=== PATIENT | male | born 1970 | race African-American/Black ===

== ENCOUNTER 2018-06-24 09:10 | Outpatient (CLI) | payer MEDICARE, MEDICAID ==
[~2018-06-24] VITALS: Ht 188 cm; Wt 112.0 kg
[2018-06-24] MEDS ORDERED: BP MED PO (09:27)
[2018-06-24] MEDS ORDERED: ATORVASTATIN CA10 MG ORAL (09:27)
[2018-06-24 09:30] VITALS: BP 140/98
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
[2018-06-25] MEDS ORDERED: NORVASC10 MG ORAL (08:33)
== END 2018-06-24 09:40 | disposition home or self-care (01) ==
LOC: PAN 09:10
DX: Z12.11 Encounter for screening for malignant neoplasm of colon (principal); E78.5 Hyperlipidemia, unspecified; I10 Essential (primary) hypertension; K21.9 Gastro-esophageal reflux disease without esophagitis; Z98.890 Other specified postprocedural states
CPT/HCPCS: 99202